=== PATIENT | male | born 1980 | race Caucasian/White ===

== ENCOUNTER 2017-04-27 11:12 | Emergency (ER) | payer MEDICAID ==
[~2017-04-27] VITALS: Ht 170.2 cm; Wt 68.8 kg
[~2017-04-27 11:12] MED LIST: CIPR-230 PO; HYDR-569 PO; METR500T4 PO
[2017-04-27] MEDS ORDERED: CIP750T PO (11:58)
[2017-04-27] MEDS ORDERED: METR500T4 PO (11:58)
[2017-04-27 12:10] VITALS: BP 123/85
== END 2017-04-27 12:11 | disposition home or self-care (01) ==
LOC: ER 11:12
DX: K61.1 Rectal abscess (principal); Z86.14 Personal history of Methicillin resistant Staphylococcus aureus infection; Z88.0 Allergy status to penicillin; Z88.1 Allergy status to other antibiotic agents; Z98.890 Other specified postprocedural states
CPT/HCPCS: 99283

== ENCOUNTER 2017-05-16 20:02 | Emergency (ER) | payer MEDICAID ==
[~2017-05-16] VITALS: Ht 170.2 cm; Wt 67.5 kg
[~2017-05-16 20:02] MED LIST changes: +CIP750T PO
[2017-05-16] MEDS ORDERED: IBUP-1984 PO (21:01)
[2017-05-16 21:23] VITALS: BP 123/81
== END 2017-05-16 21:29 | disposition home or self-care (01) ==
LOC: ER 20:02
DX: M79.641 Pain in right hand (principal); F17.200 Nicotine dependence, unspecified, uncomplicated; Z86.14 Personal history of Methicillin resistant Staphylococcus aureus infection; Z88.8 Allergy status to other drugs, medicaments and biological substances; Z79.899 Other long term (current) drug therapy
CPT/HCPCS: 73130; 99284

== ENCOUNTER 2017-07-26 21:33 | Emergency (ER) | payer MEDICAID ==
[~2017-07-26] VITALS: Ht 170.2 cm; Wt 57.8 kg
[~2017-07-26 21:33] MED LIST changes: -CIP750T PO
[2017-07-26] MEDS ORDERED: METR500T4 PO (23:11)
[2017-07-26] MEDS ORDERED: CIP750T PO (23:11)
[2017-07-26 23:56] VITALS: BP 125/74
== END 2017-07-27 00:01 | disposition home or self-care (01) ==
LOC: ER 21:34
DX: K61.0 Anal abscess (principal); Z86.14 Personal history of Methicillin resistant Staphylococcus aureus infection; Z98.890 Other specified postprocedural states; Z88.1 Allergy status to other antibiotic agents; Z88.8 Allergy status to other drugs, medicaments and biological substances; Z79.899 Other long term (current) drug therapy
CPT/HCPCS: 99283

== ENCOUNTER 2017-08-17 17:58 | Emergency (ER) | payer MEDICAID ==
[~2017-08-17] VITALS: Ht 170.2 cm; Wt 67.8 kg
[~2017-08-17 17:58] MED LIST changes: +CIP750T PO
[2017-08-17 18:27] VITALS: BP 120/80
[2017-08-17] MEDS ORDERED: CIPR-230 PO (20:27)
[2017-08-17] MEDS ORDERED: METR500T4 PO (20:27)
== END 2017-08-17 20:38 | disposition home or self-care (01) ==
LOC: ER 17:59
DX: K61.0 Anal abscess (principal); F17.200 Nicotine dependence, unspecified, uncomplicated; Z88.1 Allergy status to other antibiotic agents; Z79.899 Other long term (current) drug therapy
CPT/HCPCS: 99283

== ENCOUNTER 2017-12-16 15:28 | Emergency (ER) | payer MEDICAID ==
[~2017-12-16] VITALS: Ht 170.2 cm; Wt 52.0 kg
[~2017-12-16 15:28] MED LIST changes: -CIP750T PO; +HYDR-4383 PO; -HYDR-569 PO
[2017-12-16 15:36] VITALS: BP 126/92
[2017-12-16] MEDS ORDERED: CIPR-230 PO (16:16)
== END 2017-12-16 16:40 | disposition home or self-care (01) ==
LOC: ER 15:28
DX: K61.1 Rectal abscess (principal); Z86.14 Personal history of Methicillin resistant Staphylococcus aureus infection; Z88.1 Allergy status to other antibiotic agents; Z79.2 Long term (current) use of antibiotics; Z79.899 Other long term (current) drug therapy
CPT/HCPCS: 99283

== ENCOUNTER 2017-12-27 14:03 | Emergency (ER) | payer MEDICAID ==
[~2017-12-27] VITALS: Ht 170.2 cm; Wt 52.0 kg
[2017-12-27 14:08] VITALS: BP 110/80
[2017-12-27] MEDS ORDERED: CIPR-230 PO (14:38)
[2017-12-27] MEDS ORDERED: METR500T4 PO (14:38)
== END 2017-12-27 14:48 | disposition home or self-care (01) ==
LOC: ER 14:04
DX: K62.89 Other specified diseases of anus and rectum (principal); Z88.1 Allergy status to other antibiotic agents; Z88.8 Allergy status to other drugs, medicaments and biological substances
CPT/HCPCS: 99283

== ENCOUNTER 2018-01-30 16:27 | Emergency (ER) | payer MEDICAID ==
[~2018-01-30] VITALS: Ht 170.2 cm; Wt 63.6 kg
[2018-01-30 16:58] VITALS: BP 121/77
[2018-01-30] MEDS ORDERED: CIPR-259 PO (17:59)
[2018-01-30] MEDS ORDERED: METR500T4 PO (17:59)
== END 2018-01-30 18:04 | disposition home or self-care (01) ==
LOC: ER 16:27
DX: K62.89 Other specified diseases of anus and rectum (principal); Z86.14 Personal history of Methicillin resistant Staphylococcus aureus infection; Z98.890 Other specified postprocedural states; Z88.1 Allergy status to other antibiotic agents; Z79.2 Long term (current) use of antibiotics; Z79.899 Other long term (current) drug therapy
CPT/HCPCS: 99283

== ENCOUNTER 2018-04-08 18:32 | Emergency (ER) | payer MEDICAID ==
[~2018-04-08] VITALS: Ht 170.2 cm; Wt 56.8 kg
[~2018-04-08 18:32] MED LIST changes: +METR-159 PO; -METR500T4 PO
[2018-04-08 18:42] VITALS: BP 113/68
[2018-04-08] MEDS ORDERED: CIPR-230 PO (19:30)
[2018-04-08] MEDS ORDERED: ciprofloxacin 250mg tablet PO ONE (19:30)
[2018-04-08] MEDS ORDERED: metroNIDAZOLE 500mg tablet PO ONE (19:30)
[2018-04-08] MEDS ORDERED: METR-159 PO (19:30)
== END 2018-04-08 19:40 | disposition home or self-care (01) ==
LOC: ER 18:32
DX: K61.0 Anal abscess (principal); Z86.14 Personal history of Methicillin resistant Staphylococcus aureus infection; F17.210 Nicotine dependence, cigarettes, uncomplicated; Z88.1 Allergy status to other antibiotic agents; Z79.899 Other long term (current) drug therapy; Z98.890 Other specified postprocedural states
CPT/HCPCS: 99283; J3490

== ENCOUNTER 2018-04-23 15:40 | Emergency (ER) | payer MEDICAID ==
[~2018-04-23] VITALS: Ht 170.2 cm; Wt 70.0 kg
[2018-04-23 15:50] VITALS: BP 122/72
[2018-04-23] MEDS ORDERED: METR-159 PO (16:41)
[2018-04-23] MEDS ORDERED: CIPR-259 PO (16:41)
== END 2018-04-23 16:53 | disposition home or self-care (01) ==
LOC: ER 15:41
DX: K60.3 Anal fistula (principal); Z88.1 Allergy status to other antibiotic agents; Z88.8 Allergy status to other drugs, medicaments and biological substances
CPT/HCPCS: 99283

== ENCOUNTER 2018-11-18 18:45 | Emergency (ER) | payer MEDICAID ==
[~2018-11-18] VITALS: Ht 170.2 cm; Wt 63.6 kg
[2018-11-18] MEDS ORDERED: ibuprofen 200mg tablet PO ONE (20:30)
[2018-11-18] MEDS ORDERED: METR-159 PO (20:52)
[2018-11-18] MEDS ORDERED: CIPR-259 PO (20:52)
[2018-11-18] MEDS ORDERED: HYDR-3965 PO (20:53)
[2018-11-18 21:19] VITALS: BP 135/86
== END 2018-11-18 21:13 | disposition home or self-care (01) ==
LOC: ER 18:46
DX: K61.1 Rectal abscess (principal); F10.99 Alcohol use, unspecified with unspecified alcohol-induced disorder; Z86.14 Personal history of Methicillin resistant Staphylococcus aureus infection; Z98.890 Other specified postprocedural states; Z88.1 Allergy status to other antibiotic agents; Z88.8 Allergy status to other drugs, medicaments and biological substances; Z79.899 Other long term (current) drug therapy; Y90.9 Presence of alcohol in blood, level not specified
CPT/HCPCS: 99283

== ENCOUNTER 2019-01-13 08:54 | Inpatient (IN) | payer MEDICAID ==
[~2019-01-13] VITALS: Ht 170.2 cm; Wt 66.0 kg
[2019-01-13] MEDS ORDERED: ciprofloxacin lact 400MG/200ML 200 ML IV ONE (09:15)
[2019-01-13] MEDS ORDERED: morphine 4 MG/ML inj SYRINge IV ONE ×3 (09:15→14:25)
[2019-01-13] MEDS ORDERED: ondansetron/PF 4mg/2ml inj IV ONE (09:15)
[2019-01-13] MEDS ORDERED: metroNIDAZOLE-Flagyl 750mg/NS 150 ML IV ONE (09:15)
[2019-01-13] MEDS ORDERED: normal saline 1000ML IV soln IV ONE (09:15)
[2019-01-13] MEDS ORDERED: iohexol 300mg/ml 100ml inj. ONE (09:19)
[2019-01-13 09:40] LABS: CLARITY,URINE CLEAR (Clear); COLOR,URINE YELLOW (Yellow); GLUCOSE, URINE NEGATIVE (Neg); KETONES,URINE TRACE mg/dl (Neg); LEUKOCYTE ESTERASE ,URINE NEGATIVE (Neg); NITRITES, URINE NEGATIVE (Neg); OCCULT BLOOD,URINE NEGATIVE (Neg); PH,URINE 5.5 (4.8-8.0); PROTEIN,URINE NEGATIVE (Neg); UROBILINOGEN,URINE 0.2 E.U/dL (0.2-1.0)
[2019-01-13 09:42] LABS: BASOPHILS # (AUTO) 0.1 X10'3 (0-0.2); BASOPHILS % (AUTO) 0.3 % (0-1); EOSINOPHILS # (AUTO) 0.1 X10'3 (0-0.9); EOSINOPHILS % (AUTO) 0.9 % (0-6); HEMOGLOBIN 13.9 g/dl (14.0-17.9); LYMPHOCYTES % (AUTO) 6.7 % (21-51); MEAN CORPUSCULAR HEMOGLOBIN 31.8 PG (27.0-31.0); MEAN CORPUSCULAR HGB CONC 33.8 g/dL (33.0-36.5); MEAN CORPUSCULAR VOLUME 94.1 FL (78-98); MEAN PLATELET VOLUME 7.1 FL (7.4-10.4); MONOCYTES % (AUTO) 6.6 % (2-12); NEUTROPHILS # (AUTO) 13.1 X10'3 (1.8-7.7); NEUTROPHILS % (AUTO) 85.5 % (42-75); PLATELET COUNT 199 X10'3 (140-440); RED BLOOD COUNT 4.36 X10'6 (4.70-6.10); RED CELL DISTRIBUTION WIDTH 14.1 % (11.5-14.5); WHITE BLOOD COUNT 15.4 X10'3 (4.5-11.0)
[2019-01-13 09:43] LABS: UA COLLECTION TYPE URINAL
[2019-01-13 09:55] LABS: ALANINE AMINOTRANSFERASE 16 U/L (12-78); ALBUMIN 3.2 G/DL (3.4-5.0); ALBUMIN/GLOBULIN RATIO 0.8 (1.1-1.5); ALKALINE PHOSPHATASE 87 IU/L (46-116); ANION GAP 7 (8-16); ASPARTATE AMINO TRANSFERASE 10 U/L (10-37); BILIRUBIN,TOTAL 0.4 MG/DL (0.1-1.0); BLOOD UREA NITROGEN 12 MG/DL (7-18); BUN/CREATININE RATIO 13.8 (5.4-32.0); CALCIUM 9.3 MG/DL (8.5-10.1); CHLORIDE 108 MMOL/L (99-107); CREATININE 0.87 MG/DL (0.60-1.10); GLUCOSE 90 MG/DL (70-104); MAGNESIUM 1.8 MG/DL (1.5-2.4); SODIUM 138 MMOL/L (135-145); TOTAL CARBON DIOXIDE 23.1 MMOL/L (24-32); TOTAL PROTEIN 7.2 G/DL (6.4-8.2); eGFR > 90 ML/MIN
[2019-01-13] MEDS ORDERED: vancomycin/NS 1 GM ADD-VANTAGE 250 ML X 1 DOSE IV ONE (12:00)
[2019-01-13] MEDS ORDERED: clindamycin 600mg/D5W 50ml 50 ML IV ONE (13:30)
[2019-01-13] MEDS ORDERED: ketorolac trometh. 30mg/ml inj. IV ONE (14:25)
[2019-01-13] MEDS ORDERED: fentaNYL/PF 50MCG/1 ML 2ML syringe ONE ×2 (14:51→15:09)
[2019-01-13] MEDS ORDERED: midazolam 2 mg/2 ml injection ONE ×2 (14:58→15:09)
[2019-01-13 15:03] VITALS: BP 131/77
[2019-01-13] MEDS ORDERED: DOCU-267 PO (15:03)
[2019-01-13 15:07] VITALS: BP 116/77
[2019-01-13 15:12] VITALS: BP 114/72
[2019-01-13] MEDS ORDERED: HYDROcodone/acetaminophen 5mg/325mg tablet PO PRN (15:55)
[2019-01-13] MEDS ORDERED: mag hydrox/Alum hydrox/simeth 30ml oral suspension PO PRN (15:55)
[2019-01-13] MEDS ORDERED: ondansetron/PF 4mg/2ml inj IV PRN (15:55)
[2019-01-13] MEDS: K and/or MAG REPLACEMENT MC SCH (15:55)
[2019-01-13] MEDS ORDERED: potassium CL 10mEq/100ml bag 100 ML IV PRN ×2 (15:55)
[2019-01-13] MEDS ORDERED: magnesium hydroxide 30ml (MOM) UD suspension PO PRN (15:55)
[2019-01-13] MEDS ORDERED: magnesium Cl slow-release 64mg tablet PO PRN (15:55)
[2019-01-13] MEDS ORDERED: acetaminophen 325mg tablet PO PRN ×2 (15:55)
[2019-01-13] MEDS ORDERED: diphenhydrAMINE 25mg capsule PO PRN (15:55)
[2019-01-13] MEDS ORDERED: morphine 2 MG/ML inj. syringe IV PRN (15:55)
[2019-01-13] MEDS ORDERED: magnesium 2GM in 50ml NS 50 ML IV PRN (15:55)
[2019-01-13] MEDS ORDERED: diphenhydrAMINE 50 mg/ml inj IV PRN (15:55)
[2019-01-13] MEDS ORDERED: magnesium 4gm in 100ml NS 100 ML IV PRN (15:55)
[2019-01-13] MEDS ORDERED: potassium Cl 20 mEq SR tablet PO PRN ×2 (15:55)
[2019-01-13 16:24] LABS: HEMOGLOBIN A1C 5.2 % (4.5-6.2)
[2019-01-13] MEDS: normal saline 1000ml 1,000 ML IV SCH (17:12)
[2019-01-13] MEDS: metroNIDAZOLE-Flagyl 500mg/NS 100 ML IV SCH ×2 (17:16→23:37)
--- NOTE | 2019-01-13 19:00 | NUR ---
Patient in room ED 1. I have received report from SRINATH Em,ER and had the opportunity to ask questions and assume patient care.
[2019-01-13 20:00] VITALS: BP 122/76
[2019-01-13] MEDS: ciprofloxacin lact 400MG/200ML 200 ML IV SCH (21:11)
[2019-01-13] MEDS: morphine 2 MG/ML inj. syringe IV PRN (21:12)
[2019-01-13] MEDS: Melatonin 3mg tablet PO PRN (22:42)
[2019-01-13] MEDS: HYDROcodone/acetaminophen 10/325mg tab PO PRN (23:37)
[2019-01-13 23:54] VITALS: BP 106/60
[2019-01-14] VITALS (16 sets, daily range): BP systolic 101–125; BP diastolic 61–75
[2019-01-14 01:24] LABS: URINE AMPHETAMINE SCREEN NEGATIVE (Neg); URINE BARBITUATE SCREEN NEGATIVE (Neg); URINE BENZODIAZEPINES SCREEN NEGATIVE (Neg); URINE CANNABINOID SCREEN POSITIVE (Neg); URINE COCAINE SCREEN NEGATIVE (Neg); URINE METHADONE SCREEN NEGATIVE (Neg); URINE OPIATE SCREEN POSITIVE (Neg); URINE PHENCYCLIDINE SCREEN NEGATIVE (Neg)
[2019-01-14] MEDS: normal saline 1000ml 1,000 ML IV SCH ×3 (01:54→21:54)
[2019-01-14] MEDS: morphine 2 MG/ML inj. syringe IV PRN ×4 (02:13→21:43)
[2019-01-14] MEDS: HYDROcodone/acetaminophen 10/325mg tab PO PRN ×4 (04:28→18:09)
[2019-01-14 06:19] LABS: BASOPHILS % (AUTO) 0.2 % (0-1); EOSINOPHILS # (AUTO) 0.2 X10'3 (0-0.9); EOSINOPHILS % (AUTO) 1.2 % (0-6); HEMATOCRIT 36.3 % (42.0-52.0); HEMOGLOBIN 12.1 g/dl (14.0-17.9); LYMPHOCYTES # (AUTO) 1.1 X10'3 (1.1-4.8); LYMPHOCYTES % (AUTO) 8.1 % (21-51); MEAN CORPUSCULAR HEMOGLOBIN 31.7 PG (27.0-31.0); MEAN CORPUSCULAR HGB CONC 33.3 g/dL (33.0-36.5); MEAN CORPUSCULAR VOLUME 95.4 FL (78-98); MEAN PLATELET VOLUME 7.7 FL (7.4-10.4); MONOCYTES # (AUTO) 1.3 X10'3 (0-0.9); MONOCYTES % (AUTO) 10.2 % (2-12); NEUTROPHILS # (AUTO) 10.6 X10'3 (1.8-7.7); NEUTROPHILS % (AUTO) 80.3 % (42-75); PLATELET COUNT 161 X10'3 (140-440); RED CELL DISTRIBUTION WIDTH 13.9 % (11.5-14.5); WHITE BLOOD COUNT 13.2 X10'3 (4.5-11.0)
[2019-01-14 06:28] LABS: ALANINE AMINOTRANSFERASE 15 U/L (12-78); ALBUMIN 2.6 G/DL (3.4-5.0); ALBUMIN/GLOBULIN RATIO 0.7 (1.1-1.5); ALKALINE PHOSPHATASE 86 IU/L (46-116); ANION GAP 9 (8-16); ASPARTATE AMINO TRANSFERASE 11 U/L (10-37); BILIRUBIN,TOTAL 0.4 MG/DL (0.1-1.0); BLOOD UREA NITROGEN 6 MG/DL (7-18); BUN/CREATININE RATIO 7.4 (5.4-32.0); CALCIUM 8.4 MG/DL (8.5-10.1); CHLORIDE 106 MMOL/L (99-107); CHOL/HDL RATIO 2.7 (0.00-4.99); CHOLESTEROL 84 MG/DL (0-200); CREATININE 0.81 MG/DL (0.60-1.10); GLUCOSE 103 MG/DL (70-104); HDL CHOLESTEROL 31 MG/DL (35-60); LDL CHOLESTEROL 40 MG/DL (50-100); MAGNESIUM 1.5 MG/DL (1.5-2.4); PHOSPHORUS 2.3 MG/DL (2.3-4.5); POTASSIUM 3.6 MMOL/L (3.5-5.1); SODIUM 137 MMOL/L (135-145); TOTAL CARBON DIOXIDE 21.9 MMOL/L (24-32); TOTAL PROTEIN 6.1 G/DL (6.4-8.2); TRIGLYCERIDES 72 MG/DL (20-135); eGFR > 90 ML/MIN
--- NOTE | 2019-01-14 06:40 | NUR ---
Problems reprioritized. Patient report given, questions answered & plan of care reviewed with SRINATH Hadley.
--- NOTE | 2019-01-14 07:00 | NUR ---
Patient in room [facility]. I have received report from forrest YO and had the opportunity to ask questions and assume patient care.
[2019-01-14] MEDS: docusate sod 100mg capsule PO SCH ×2 (07:09→20:10)
[2019-01-14] MEDS: metroNIDAZOLE-Flagyl 500mg/NS 100 ML IV SCH ×2 (07:09→15:39)
[2019-01-14] MEDS: K and/or MAG REPLACEMENT MC SCH (08:00)
[2019-01-14] MEDS: ciprofloxacin lact 400MG/200ML 200 ML IV SCH ×2 (08:32→20:11)
[2019-01-14] MEDS ORDERED: iohexol 350MG/ML 100ml bottle IV ONE (11:49)
[2019-01-14] MEDS ORDERED: VANCOMYCIN LEVEL IV ONE (12:30)
[2019-01-14] MEDS ORDERED: ringers solution, lacted 1,000 ML IV SCH (16:14)
[2019-01-14] MEDS ORDERED: labetalol 20mg/4ml (5mg/ml) syringe IV PRN (16:15)
[2019-01-14] MEDS ORDERED: hydrALAZINE 20mg/ml inj. IV PRN (16:15)
[2019-01-14] MEDS ORDERED: fentaNYL/PF 50MCG/1 ML 2ML syringe IV PRN ×2 (16:15)
[2019-01-14] MEDS ORDERED: morphine 4 MG/ML inj SYRINge IV PRN ×2 (16:15)
[2019-01-14] MEDS ORDERED: ondansetron/PF 4mg/2ml inj IV PRN (16:15)
[2019-01-14] MEDS ORDERED: sevoflurane 250ml liquid IH ONE (17:04)
[2019-01-14] MEDS ORDERED: fentaNYL/PF 50MCG/1 ML 2ML syringe ONE ×3 (17:06→17:26)
[2019-01-14] MEDS ORDERED: midazolam 2 mg/2 ml injection ONE (17:07)
[2019-01-14] MEDS ORDERED: LIDOcaine 2% (20mg/ml) 5ml vial ONE (17:07)
[2019-01-14] MEDS ORDERED: dexamethasone sod phosphate 4mg/ml inj. ONE (17:07)
[2019-01-14] MEDS ORDERED: ondansetron/PF 4mg/2ml inj ONE (17:07)
[2019-01-14] MEDS ORDERED: propofol inj 20 ML IV ONE (17:07)
[2019-01-14] MEDS ORDERED: acetaminophen 1,000mg/100ml IV 100 ML IV ONE (17:19)
--- NOTE | 2019-01-14 17:24 | NUR ---
patient seen by DR Cesar, is for surgery this afternoon. All pre-op check list completed. patient went to OR 1630hrs.
--- NOTE | 2019-01-14 17:45 | NUR ---
ADMITTED TO PACU FROM OR ACCOMPANIED BY ANESTHESIA. INTIAL PHYSICAL ASSESSMENT DONE AND RECORDED. REPORT RECEIVED FROM ANESTHESIA.
--- NOTE | 2019-01-14 18:30 | NUR ---
Patient in room [facility] 352. I have received report from forrest alcocer and had the opportunity to ask questions and assume patient care.
--- NOTE | 2019-01-14 18:30 | NUR ---
PACU DISCHARGE CRITERIA MET, REPORT GIVEN TO FLOOR. MEDICATED PAIN ORDERED WITH GOOD RESULTS. TRANSFERRED TO ROOM IN STABLE GOOD CONDITION.
--- NOTE | 2019-01-14 18:44 | NUR ---
patient went for I&D of perirectal abscess with DR Cesar. Arrived back on unit 183, report given to Grace RN
--- NOTE | 2019-01-14 19:00 | NUR ---
patient arrived from OR and had an Iand D done by Dr Fleming. Pas was evacuated and patient is back and resting He denies having pain and shows no sign of distress. Will continue to monitor patient and give medications as ordered.
--- NOTE | 2019-01-14 19:32 | NUR ---
Patient in room [facility] 352. I have received report from Leonie YO and had the opportunity to ask questions and assume patient care. patient was having coughing episodes and is now resting with family by her bedside.
[2019-01-14] MEDS: Melatonin 3mg tablet PO PRN (21:41)
[2019-01-15] VITALS: BP 99/69
[2019-01-15] MEDS: metroNIDAZOLE-Flagyl 500mg/NS 100 ML IV SCH ×4 (00:09→23:37)
[2019-01-15] MEDS: HYDROcodone/acetaminophen 10/325mg tab PO PRN ×4 (00:09→18:27)
[2019-01-15] MEDS: normal saline 1000ml 1,000 ML IV SCH ×2 (01:41→17:19)
[2019-01-15 05:48] LABS: BASOPHILS % (AUTO) 0.1 % (0-1); EOSINOPHILS % (AUTO) 0 % (0-6); HEMATOCRIT 37.2 % (42.0-52.0); HEMOGLOBIN 12.6 g/dl (14.0-17.9); LYMPHOCYTES # (AUTO) 0.4 X10'3 (1.1-4.8); MEAN CORPUSCULAR HEMOGLOBIN 31.8 PG (27.0-31.0); MEAN CORPUSCULAR HGB CONC 33.7 g/dL (33.0-36.5); MEAN CORPUSCULAR VOLUME 94.4 FL (78-98); MEAN PLATELET VOLUME 7.5 FL (7.4-10.4); MONOCYTES # (AUTO) 0.3 X10'3 (0-0.9); NEUTROPHILS # (AUTO) 14.2 X10'3 (1.8-7.7); NEUTROPHILS % (AUTO) 94.9 % (42-75); PLATELET COUNT 183 X10'3 (140-440); RED BLOOD COUNT 3.94 X10'6 (4.70-6.10); RED CELL DISTRIBUTION WIDTH 14.1 % (11.5-14.5)
[2019-01-15 06:10] LABS: ALBUMIN 2.7 G/DL (3.4-5.0); ANION GAP 9 (8-16); BILIRUBIN,TOTAL 0.4 MG/DL (0.1-1.0); BLOOD UREA NITROGEN 8 MG/DL (7-18); BUN/CREATININE RATIO 10.5 (5.4-32.0); CALCIUM 8.9 MG/DL (8.5-10.1); CHLORIDE 105 MMOL/L (99-107); CREATININE 0.76 MG/DL (0.60-1.10); GLUCOSE 142 MG/DL (70-104); MAGNESIUM 1.8 MG/DL (1.5-2.4); PHOSPHORUS 2.7 MG/DL (2.3-4.5); POTASSIUM 3.8 MMOL/L (3.5-5.1); SODIUM 136 MMOL/L (135-145); TOTAL PROTEIN 6.7 G/DL (6.4-8.2); eGFR > 90 ML/MIN
[2019-01-15 06:11] LABS: ALANINE AMINOTRANSFERASE 11 U/L (12-78); ALBUMIN/GLOBULIN RATIO 0.7 (1.1-1.5); ALKALINE PHOSPHATASE 85 IU/L (46-116); ASPARTATE AMINO TRANSFERASE 11 U/L (10-37)
--- NOTE | 2019-01-15 06:17 | NUR ---
Patient in room [facility] 352. I have received report from PARDEEP YO and had the opportunity to ask questions and assume patient care.
--- NOTE | 2019-01-15 06:22 | NUR ---
Problems reprioritized. Patient report given, questions answered & plan of care reviewed with Leonie YO. Patient is sleeping
[2019-01-15 06:57] LABS: HIV ANTIBODY 1&2 RAPID NON-REACTIVE (Neg)
[2019-01-15 07:00] VITALS: BP 123/74
[2019-01-15] MEDS: docusate sod 100mg capsule PO SCH ×2 (07:26→19:36)
[2019-01-15] MEDS: K and/or MAG REPLACEMENT MC SCH (08:00)
[2019-01-15] MEDS: ciprofloxacin lact 400MG/200ML 200 ML IV SCH ×2 (08:34→19:37)
[2019-01-15] MEDS: morphine 2 MG/ML inj. syringe IV PRN ×3 (11:10→21:17)
[2019-01-15 11:34] VITALS: BP 104/63
[2019-01-15] MEDS ORDERED: VANCOMYCIN LEVEL IV ONE (12:30)
--- NOTE | 2019-01-15 15:13 | NUR ---
patient medicated for painx2 wound to rectum checked, packing in place. up and about in room. Awaiting to be seen by Dr Cesar, to receibe wound care orders. Appears comfortable, had shower.
--- NOTE | 2019-01-15 17:58 | NUR ---
Packing DC per arjun Renae bath applied. All cares given. report given to Inga YO
[2019-01-15 18:00] VITALS: BP 116/75
--- NOTE | 2019-01-15 19:16 | NUR ---
Patient in room [facility]. I have received report from SRNIATH Hadley and had the opportunity to ask questions and assume patient care. Addendum: 01/15/19 at 1917 by Inga Nichols RN Amended: Links added.
[2019-01-15] MEDS: Melatonin 3mg tablet PO PRN (21:17)
[2019-01-15] MEDS: VANCOmycin 1250MG/NS 250ml Bag 250 ML IV SCH (21:18)
[2019-01-15 23:42] VITALS: BP 113/67
[2019-01-16] MEDS: morphine 2 MG/ML inj. syringe IV PRN ×2 (02:59→08:29)
[2019-01-16] MEDS: normal saline 1000ml 1,000 ML IV SCH ×2 (03:54→13:54)
[2019-01-16 05:18] LABS: BASOPHILS % (AUTO) 0.4 % (0-1); EOSINOPHILS % (AUTO) 0.3 % (0-6); HEMATOCRIT 35.7 % (42.0-52.0); HEMOGLOBIN 12.1 g/dl (14.0-17.9); LYMPHOCYTES # (AUTO) 1.3 X10'3 (1.1-4.8); LYMPHOCYTES % (AUTO) 11.7 % (21-51); MEAN CORPUSCULAR HEMOGLOBIN 31.9 PG (27.0-31.0); MEAN CORPUSCULAR HGB CONC 33.8 g/dL (33.0-36.5); MEAN CORPUSCULAR VOLUME 94.3 FL (78-98); MEAN PLATELET VOLUME 7.5 FL (7.4-10.4); MONOCYTES # (AUTO) 0.7 X10'3 (0-0.9); MONOCYTES % (AUTO) 6.9 % (2-12); NEUTROPHILS # (AUTO) 8.8 X10'3 (1.8-7.7); NEUTROPHILS % (AUTO) 80.7 % (42-75); PLATELET COUNT 184 X10'3 (140-440); RED BLOOD COUNT 3.79 X10'6 (4.70-6.10); WHITE BLOOD COUNT 10.9 X10'3 (4.5-11.0)
[2019-01-16 05:30] LABS: GLUCOSE 108 MG/DL (70-104); SODIUM 142 MMOL/L (135-145)
[2019-01-16 05:31] LABS: ALANINE AMINOTRANSFERASE 13 U/L (12-78); ALBUMIN 2.5 G/DL (3.4-5.0); ALBUMIN/GLOBULIN RATIO 0.7 (1.1-1.5); ALKALINE PHOSPHATASE 71 IU/L (46-116); ANION GAP 9 (8-16); ASPARTATE AMINO TRANSFERASE 11 U/L (10-37); BILIRUBIN,TOTAL 0.3 MG/DL (0.1-1.0); BLOOD UREA NITROGEN 9 MG/DL (7-18); BUN/CREATININE RATIO 12.3 (5.4-32.0); CALCIUM 8.8 MG/DL (8.5-10.1); CHLORIDE 109 MMOL/L (99-107); CREATININE 0.73 MG/DL (0.60-1.10); MAGNESIUM 1.7 MG/DL (1.5-2.4); PHOSPHORUS 2.9 MG/DL (2.3-4.5); POTASSIUM 3.8 MMOL/L (3.5-5.1); TOTAL CARBON DIOXIDE 23.9 MMOL/L (24-32); TOTAL PROTEIN 5.9 G/DL (6.4-8.2); eGFR > 90 ML/MIN
[2019-01-16] MEDS: HYDROcodone/acetaminophen 10/325mg tab PO PRN ×2 (05:54→10:44)
[2019-01-16] MEDS: VANCOmycin 1250MG/NS 250ml Bag 250 ML IV SCH ×2 (05:56→14:00)
--- NOTE | 2019-01-16 06:05 | NUR ---
Problems reprioritized. Patient report given, questions answered & plan of care reviewed with SRINATH Salcido. Addendum: 01/16/19 at 0605 by Inga Nichols RN Amended: Links added.
--- NOTE | 2019-01-16 06:44 | NUR ---
Patient in room [facility]. I have received report from SRINATH Xiong and had the opportunity to ask questions and assume patient care.
[2019-01-16 07:00] VITALS: BP 125/56
[2019-01-16] MEDS: K and/or MAG REPLACEMENT MC SCH (08:00)
[2019-01-16] MEDS: ciprofloxacin lact 400MG/200ML 200 ML IV SCH (08:29)
[2019-01-16] MEDS: docusate sod 100mg capsule PO SCH (08:29)
[2019-01-16] MEDS: metroNIDAZOLE-Flagyl 500mg/NS 100 ML IV SCH (10:45)
[2019-01-16 11:00] VITALS: BP 102/65
[2019-01-16] MEDS ORDERED: LINE600T12 PO (13:04)
--- NOTE | 2019-01-16 15:26 | NUR ---
PATIENT STABLE AND APPROPRIATE FOR DISCHARGE, IV TAKEN OUT, EDUCATION GIVEN, ALL BELONGINGS SENT WITH PATIENT, PATIENT WALKED WITH MOM TO LOBBY TO AN AWAITING CAR TO GO HOME
[2019-01-16] MEDS ORDERED: VANCOMYCIN LEVEL IV ONE (21:30)
[2019-01-17 09:24] LABS: HBSAG SCREEN Negative (Negative); HEPATITIS C ANTIBODY <0.1 s/co ratio (0.0-0.9)
== END 2019-01-16 14:27 | disposition home or self-care (01) | DRG 383 ==
LOC: ER 08:54 → ED HOLD 16:09 → SUR 3N 19:34
PROVIDERS: ADMIT Family Medicine; ATTEND Family Medicine
PROC: 0W9M3ZZ Drainage of Male Perineum, Percutaneous Approach (ICD-10-PCS; principal; 2019-01-13)
PROC: BW2G1ZZ Computerized Tomography (CT Scan) of Pelvic Region using Low Osmolar Contrast (ICD-10-PCS; 2019-01-13)
PROC: 0W9M0ZZ Drainage of Male Perineum, Open Approach (ICD-10-PCS; 2019-01-14)
DX: L02.215 Cutaneous abscess of perineum (principal); K61.1 Rectal abscess; F12.10 Cannabis abuse, uncomplicated; F17.200 Nicotine dependence, unspecified, uncomplicated; Z88.1 Allergy status to other antibiotic agents; Z71.6 Tobacco abuse counseling; Z71.51 Drug abuse counseling and surveillance of drug abuser
CPT/HCPCS: 10030; 36415; 72193; 80053; 80061; 80202; 80305; 81003; 83036; 83605; 83735; 84100; 84145; 85025; 85610; 86703; 86706; 86803; 87040; 87070; 87075; 87077; 87081; 87186; 87340; 96365; 96367; 96375; 96376; 99285; A4618; A6253; A6266; A6449; A7000; G0378; J0131; J0744; J1100; J1885; J2001; J2250; J2270; J2405; J2704; J3010; J3370; J3490; J7030; J7120; Q9967

== ENCOUNTER 2019-02-02 18:23 | Emergency (ER) | payer MEDICAID ==
[~2019-02-02] VITALS: Ht 170.2 cm; Wt 64.0 kg
[~2019-02-02 18:23] MED LIST changes: -CIPR-230 PO; +DOCU-267 PO; -HYDR-4383 PO; +LINE600T12 PO; -METR-159 PO
--- NOTE | 2019-02-02 19:04 | NUR ---
SPOKE WITH PATEE, VERBAL GIVEN FOR SEPSIS PROTOCOL SECONDARY TO PTS HISTORY.
[2019-02-02 19:35] LABS: BASOPHILS # (AUTO) 0.1 X10'3 (0-0.2); BASOPHILS % (AUTO) 0.8 % (0-1); EOSINOPHILS # (AUTO) 0.1 X10'3 (0-0.9); EOSINOPHILS % (AUTO) 1.6 % (0-6); HEMATOCRIT 40.6 % (42.0-52.0); LYMPHOCYTES % (AUTO) 25.3 % (21-51); MEAN CORPUSCULAR HEMOGLOBIN 31.8 PG (27.0-31.0); MEAN CORPUSCULAR HGB CONC 34.5 g/dL (33.0-36.5); MEAN PLATELET VOLUME 6.4 FL (7.4-10.4); MONOCYTES # (AUTO) 0.5 X10'3 (0-0.9); MONOCYTES % (AUTO) 7.1 % (2-12); NEUTROPHILS % (AUTO) 65.2 % (42-75); PLATELET COUNT 162 X10'3 (140-440); RED BLOOD COUNT 4.41 X10'6 (4.70-6.10); RED CELL DISTRIBUTION WIDTH 14.2 % (11.5-14.5); WHITE BLOOD COUNT 7.7 X10'3 (4.5-11.0)
[2019-02-02 19:48] LABS: PARTIAL THROMBOPLASTIN TIME 28 SECONDS (22-32)
[2019-02-02 19:49] LABS: ALANINE AMINOTRANSFERASE 25 U/L (12-78); ALBUMIN 3.9 G/DL (3.4-5.0); ALBUMIN/GLOBULIN RATIO 1.1 (1.1-1.5); ALKALINE PHOSPHATASE 88 IU/L (46-116); ANION GAP 10 (8-16); ASPARTATE AMINO TRANSFERASE 20 U/L (10-37); BILIRUBIN,TOTAL 0.6 MG/DL (0.1-1.0); BLOOD UREA NITROGEN 13 MG/DL (7-18); BUN/CREATININE RATIO 16.9 (5.4-32.0); CALCIUM 9.2 MG/DL (8.5-10.1); CHLORIDE 102 MMOL/L (99-107); CREATININE 0.77 MG/DL (0.60-1.10); GLUCOSE 89 MG/DL (70-104); MAGNESIUM 1.7 MG/DL (1.5-2.4); POTASSIUM 3.9 MMOL/L (3.5-5.1); SODIUM 137 MMOL/L (135-145); TOTAL CARBON DIOXIDE 25.3 MMOL/L (24-32); TOTAL PROTEIN 7.6 G/DL (6.4-8.2); eGFR > 90 ML/MIN
[2019-02-02 21:17] LABS: CLARITY,URINE CLEAR (Clear); COLOR,URINE YELLOW (Yellow); GLUCOSE, URINE NEGATIVE (Neg); KETONES,URINE 15 mg/dl (Neg); LEUKOCYTE ESTERASE ,URINE NEGATIVE (Neg); NITRITES, URINE NEGATIVE (Neg); OCCULT BLOOD,URINE NEGATIVE (Neg); PH,URINE 6.5 (4.8-8.0); PROTEIN,URINE NEGATIVE (Neg); UROBILINOGEN,URINE 0.2 E.U/dL (0.2-1.0)
[2019-02-02 21:19] LABS: UA COLLECTION TYPE URINAL
[2019-02-02] MEDS ORDERED: SULF1TAB49 PO (21:38)
[2019-02-02] MEDS ORDERED: ondansetron 4mg rapidly disintigrating tab PO ONE (21:40)
[2019-02-02] MEDS ORDERED: sulfamethoxazole/trimethoprim DS (800/160mg) tablet PO ONE (21:40)
--- NOTE | 2019-02-02 21:45 | NUR ---
dr zambrano talked with dr. vincent, and then to pt. pt to be started on antibiotics, first dose here, and to follow up soon with dr. vincent. pt is agreeable to this plan.
[2019-02-02 21:50] VITALS: BP 125/86
== END 2019-02-02 21:51 | disposition home or self-care (01) ==
LOC: ER 18:24
DX: L02.31 Cutaneous abscess of buttock (principal); F10.99 Alcohol use, unspecified with unspecified alcohol-induced disorder; R79.1 Abnormal coagulation profile; Z86.14 Personal history of Methicillin resistant Staphylococcus aureus infection; Z98.890 Other specified postprocedural states; Z88.1 Allergy status to other antibiotic agents; Z88.8 Allergy status to other drugs, medicaments and biological substances; Z79.899 Other long term (current) drug therapy; Y90.9 Presence of alcohol in blood, level not specified
CPT/HCPCS: 36415; 71045; 80053; 81003; 83605; 83735; 84145; 85025; 85610; 85730; 87040; 99284

== ENCOUNTER 2019-03-03 19:03 | Inpatient (IN) | payer MEDICAID ==
[~2019-03-03] VITALS: Ht 170.2 cm; Wt 64.5 kg
[~2019-03-03 19:03] MED LIST changes: -LINE600T12 PO
[2019-03-03] MEDS ORDERED: iohexol 300mg/ml 100ml inj. ONE (20:05)
[2019-03-03 20:16] LABS: BASOPHILS # (AUTO) 0.1 X10'3 (0-0.2); BASOPHILS % (AUTO) 0.5 % (0-1); EOSINOPHILS % (AUTO) 0.3 % (0-6); HEMATOCRIT 41.4 % (42.0-52.0); HEMOGLOBIN 14.3 g/dl (14.0-17.9); LYMPHOCYTES # (AUTO) 1.4 X10'3 (1.1-4.8); LYMPHOCYTES % (AUTO) 11.3 % (21-51); MEAN CORPUSCULAR HEMOGLOBIN 31.6 PG (27.0-31.0); MEAN CORPUSCULAR HGB CONC 34.5 g/dL (33.0-36.5); MEAN CORPUSCULAR VOLUME 91.6 FL (78-98); MEAN PLATELET VOLUME 7.1 FL (7.4-10.4); MONOCYTES # (AUTO) 1.1 X10'3 (0-0.9); MONOCYTES % (AUTO) 9.3 % (2-12); NEUTROPHILS # (AUTO) 9.4 X10'3 (1.8-7.7); NEUTROPHILS % (AUTO) 78.6 % (42-75); PLATELET COUNT 191 X10'3 (140-440); RED BLOOD COUNT 4.52 X10'6 (4.70-6.10)
[2019-03-03 20:30] LABS: ALANINE AMINOTRANSFERASE 21 U/L (12-78); ALBUMIN 3.8 G/DL (3.4-5.0); ALBUMIN/GLOBULIN RATIO 1.2 (1.1-1.5); ALKALINE PHOSPHATASE 104 IU/L (46-116); ANION GAP 7 (8-16); ASPARTATE AMINO TRANSFERASE 17 U/L (10-37); BILIRUBIN,TOTAL 0.7 MG/DL (0.1-1.0); BLOOD UREA NITROGEN 17 MG/DL (7-18); BUN/CREATININE RATIO 17.7 (5.4-32.0); CALCIUM 9.5 MG/DL (8.5-10.1); CHLORIDE 105 MMOL/L (99-107); CREATININE 0.96 MG/DL (0.60-1.10); GLUCOSE 89 MG/DL (70-104); POTASSIUM 3.7 MMOL/L (3.5-5.1); SODIUM 140 MMOL/L (135-145); TOTAL CARBON DIOXIDE 28.2 MMOL/L (24-32); TOTAL PROTEIN 7.1 G/DL (6.4-8.2); eGFR 87 ML/MIN
[2019-03-03] MEDS ORDERED: morphine 4 MG/ML inj SYRINge IV ONE ×2 (21:05→22:05)
[2019-03-03] MEDS ORDERED: ondansetron/PF 4mg/2ml inj IV ONE (21:05)
[2019-03-03] MEDS ORDERED: vancomycin/NS 1 GM ADD-VANTAGE 250 ML X 1 DOSE IV ONE (21:45)
[2019-03-03] MEDS ORDERED: magnesium 4gm in 100ml NS 100 ML IV PRN (21:55)
[2019-03-03] MEDS ORDERED: potassium CL 10mEq/100ml bag 100 ML IV PRN ×2 (21:55)
[2019-03-03] MEDS ORDERED: magnesium Cl slow-release 64mg tablet PO PRN (21:55)
[2019-03-03] MEDS ORDERED: acetaminophen 325mg tablet PO PRN (21:55)
[2019-03-03] MEDS ORDERED: morphine 2 MG/ML inj. syringe IV PRN (21:55)
[2019-03-03] MEDS ORDERED: potassium Cl 20 mEq SR tablet PO PRN (21:55)
[2019-03-03] MEDS ORDERED: ondansetron/PF 4mg/2ml inj IV PRN (21:55)
[2019-03-03] MEDS ORDERED: magnesium 2GM in 50ml NS 50 ML IV PRN (21:55)
[2019-03-03] MEDS ORDERED: mag hydrox/Alum hydrox/simeth 30ml oral suspension PO PRN (21:55)
[2019-03-03] MEDS ORDERED: magnesium hydroxide 30ml (MOM) UD suspension PO PRN (21:55)
[2019-03-03] MEDS: normal saline 1000ml 1,000 ML IV SCH (22:20)
[2019-03-03 22:25] LABS: LIPASE 172 U/L (73-393)
--- NOTE | 2019-03-03 22:28 | NUR ---
Patient in room . I have received report from SRINATH Pelletier and had the opportunity to ask questions and assume patient care.
[2019-03-03 22:42] VITALS: BP 124/82
[2019-03-03] MEDS: HYDROcodone/acetaminophen 5mg/325mg tablet PO PRN (23:16)
[2019-03-04] VITALS (16 sets, daily range): BP systolic 108–137; BP diastolic 62–93
[2019-03-04] MEDS: morphine 2 MG/ML inj. syringe IV PRN ×4 (02:27→19:08)
[2019-03-04] MEDS: HYDROcodone/acetaminophen 5mg/325mg tablet PO PRN ×2 (03:38→21:46)
[2019-03-04] MEDS: normal saline 1000ml 1,000 ML IV SCH (05:11)
[2019-03-04 06:10] LABS: ALBUMIN 3.1 G/DL (3.4-5.0); ANION GAP 8 (8-16); BLOOD UREA NITROGEN 9 MG/DL (7-18); BUN/CREATININE RATIO 10.7 (5.4-32.0); CALCIUM 8.4 MG/DL (8.5-10.1); CHLORIDE 105 MMOL/L (99-107); CREATININE 0.84 MG/DL (0.60-1.10); GLUCOSE 90 MG/DL (70-104); MAGNESIUM 1.5 MG/DL (1.5-2.4); POTASSIUM 3.7 MMOL/L (3.5-5.1); SODIUM 139 MMOL/L (135-145); TOTAL CARBON DIOXIDE 25.7 MMOL/L (24-32); eGFR > 90 ML/MIN
--- NOTE | 2019-03-04 06:10 | NUR ---
Patient in room [facility]. I have received report from SRINATH Mayfield and had the opportunity to ask questions and assume patient care.
[2019-03-04 06:15] LABS: BASOPHILS % (AUTO) 0.3 % (0-1); EOSINOPHILS # (AUTO) 0.1 X10'3 (0-0.9); EOSINOPHILS % (AUTO) 0.6 % (0-6); HEMATOCRIT 37.8 % (42.0-52.0); LYMPHOCYTES # (AUTO) 1.4 X10'3 (1.1-4.8); MEAN CORPUSCULAR HEMOGLOBIN 31.8 PG (27.0-31.0); MEAN CORPUSCULAR HGB CONC 34.5 g/dL (33.0-36.5); MEAN CORPUSCULAR VOLUME 92.3 FL (78-98); MEAN PLATELET VOLUME 7.2 FL (7.4-10.4); MONOCYTES % (AUTO) 9.5 % (2-12); NEUTROPHILS # (AUTO) 8.1 X10'3 (1.8-7.7); NEUTROPHILS % (AUTO) 76.6 % (42-75); PLATELET COUNT 159 X10'3 (140-440); RED BLOOD COUNT 4.09 X10'6 (4.70-6.10); RED CELL DISTRIBUTION WIDTH 14.3 % (11.5-14.5); WHITE BLOOD COUNT 10.6 X10'3 (4.5-11.0)
[2019-03-04] MEDS: vancomycin/NS 1 GM ADD-VANTAGE 250 ML IV SCH ×2 (06:41→13:10)
--- NOTE | 2019-03-04 06:50 | NUR ---
Problems reprioritized. Patient report given, questions answered & plan of care reviewed with Adair Ross.
--- NOTE | 2019-03-04 07:02 | NUR ---
Patient in room [facility]. I have received report from Chaparro YO and had the opportunity to ask questions and assume patient care.
[2019-03-04] MEDS: K and/or MAG REPLACEMENT MC SCH ×2 (07:28→19:06)
[2019-03-04] MEDS: enoxaparin 40mg/0.4ml syringe SQ SCH (07:29)
[2019-03-04] MEDS: ibuprofen tablet 400 MG TABLET PO SCH ×3 (07:30→17:27)
[2019-03-04] MEDS: famotidine 10mg tablet PO SCH ×2 (07:41→19:07)
[2019-03-04] MEDS: lactobacillus rhamnosus 10,000 MMU CELLS/CAPSULE PO SCH ×2 (07:41→19:07)
[2019-03-04] MEDS: docusate sod 100mg capsule PO SCH ×2 (07:41→19:07)
[2019-03-04] MEDS ORDERED: ringers solution, lacted 1,000 ML IV SCH (09:17)
[2019-03-04] MEDS ORDERED: morphine 4 MG/ML inj SYRINge IV PRN ×2 (09:20)
[2019-03-04] MEDS ORDERED: meperidine/PF 25mg/ml syringe IV PRN ×3 (09:20)
[2019-03-04] MEDS ORDERED: ondansetron/PF 4mg/2ml inj IV PRN (09:20)
[2019-03-04] MEDS ORDERED: fentaNYL/PF 50MCG/1 ML 2ML syringe ONE ×2 (09:20→09:49)
[2019-03-04] MEDS ORDERED: proCHLORperazine 10 MG/2 ml inj IV PRN (09:20)
[2019-03-04] MEDS ORDERED: midazolam 2 mg/2 ml injection ONE (09:21)
[2019-03-04] MEDS ORDERED: glycopyrrolate 0.2mg/ml inj ONE (09:24)
[2019-03-04] MEDS ORDERED: neostigmine methylsulfate 1 MG/ML 10ml vial ONE (09:24)
[2019-03-04] MEDS ORDERED: dexamethasone sod phosphate 4mg/ml inj. ONE (09:24)
[2019-03-04] MEDS ORDERED: rocuronium 10mg/ml inj IV ONE (09:24)
[2019-03-04] MEDS ORDERED: propofol inj 20 ML IV ONE (09:24)
[2019-03-04] MEDS ORDERED: LIDOcaine 2% (20mg/ml) 5ml vial ONE (09:24)
[2019-03-04] MEDS ORDERED: ondansetron/PF 4mg/2ml inj ONE (09:24)
[2019-03-04] MEDS ORDERED: sevoflurane 250ml liquid IH ONE (09:27)
[2019-03-04] MEDS ORDERED: BUPIVAcaine/PF 2.5 mg/ml (0.25%) 30ml vial ONE (09:46)
[2019-03-04] MEDS ORDERED: LIDOcaine 1% 30ml preserv. free vial ONE (09:46)
[2019-03-04] MEDS ORDERED: metroNIDAZOLE-Flagyl 500mg/NS 100 ML IV ONE (10:10)
--- NOTE | 2019-03-04 10:20 | NUR ---
Received from OR via , accompanied by Anesthesiologist DR BATRES and report given by Anesthesiolgist. AWAKENS TO VOICE. VITALS STABLR. DRESSING DI. NIC PAIN.
--- NOTE | 2019-03-04 11:00 | NUR ---
Report called to receiving nurse. Transferred via BED Belongings . Special Issues communicated to receiving nurse. AWAKE AND ORIENTED. VITALS STABLE. SM AMNT OF RED DRAINAGE NOTED TO DRESSING. DENIASE PAIN. TO SURGICAL RM 341 AT THIS TIME.
[2019-03-04] MEDS ORDERED: VANCOMYCIN 1gm/H2O 200ml PB 250 ML IV SCH (13:21)
[2019-03-04] MEDS: metroNIDAZOLE-Flagyl 500mg/NS 100 ML IV SCH (15:45)
--- NOTE | 2019-03-04 18:17 | NUR ---
Problems reprioritized. Patient report given to Rafa RN, questions answered & plan of care reviewed with [].
[2019-03-05] VITALS: BP 118/71
[2019-03-05] MEDS: metroNIDAZOLE-Flagyl 500mg/NS 100 ML IV SCH ×2 (00:33→07:58)
[2019-03-05] MEDS: morphine 2 MG/ML inj. syringe IV PRN ×4 (00:34→20:28)
[2019-03-05] MEDS: HYDROcodone/acetaminophen 5mg/325mg tablet PO PRN (05:05)
[2019-03-05] MEDS ORDERED: VANCOMYCIN LEVEL IV ONE (05:30)
[2019-03-05 06:09] LABS: ANION GAP 10 (8-16); BLOOD UREA NITROGEN 12 MG/DL (7-18); BUN/CREATININE RATIO 13.6 (5.4-32.0); CHLORIDE 106 MMOL/L (99-107); CREATININE 0.88 MG/DL (0.60-1.10); GLUCOSE 117 MG/DL (70-104); MAGNESIUM 1.9 MG/DL (1.5-2.4); POTASSIUM 3.8 MMOL/L (3.5-5.1); SODIUM 140 MMOL/L (135-145); TOTAL CARBON DIOXIDE 24.4 MMOL/L (24-32); VANCOMYCIN,TROUGH 3.8 UG/ML (6.0-14.0); eGFR > 90 ML/MIN
[2019-03-05 06:11] LABS: BASOPHILS % (AUTO) 0.1 % (0-1); EOSINOPHILS % (AUTO) 0 % (0-6); HEMATOCRIT 37.3 % (42.0-52.0); HEMOGLOBIN 12.7 g/dl (14.0-17.9); LYMPHOCYTES # (AUTO) 0.8 X10'3 (1.1-4.8); LYMPHOCYTES % (AUTO) 6.3 % (21-51); MEAN CORPUSCULAR HEMOGLOBIN 31.7 PG (27.0-31.0); MEAN CORPUSCULAR HGB CONC 34.1 g/dL (33.0-36.5); MEAN CORPUSCULAR VOLUME 92.9 FL (78-98); MEAN PLATELET VOLUME 7.4 FL (7.4-10.4); MONOCYTES # (AUTO) 0.8 X10'3 (0-0.9); MONOCYTES % (AUTO) 6.8 % (2-12); NEUTROPHILS # (AUTO) 10.6 X10'3 (1.8-7.7); NEUTROPHILS % (AUTO) 86.8 % (42-75); PLATELET COUNT 169 X10'3 (140-440); RED BLOOD COUNT 4.02 X10'6 (4.70-6.10); RED CELL DISTRIBUTION WIDTH 13.9 % (11.5-14.5); WHITE BLOOD COUNT 12.2 X10'3 (4.5-11.0)
--- NOTE | 2019-03-05 06:15 | NUR ---
Patient in room [facility]. I have received report from SRINATH Craig and had the opportunity to ask questions and assume patient care.
--- NOTE | 2019-03-05 06:25 | NUR ---
Problems reprioritized. Patient report given, questions answered & plan of care reviewed with SRINATH Stockton.
[2019-03-05 06:30] VITALS: BP 115/75
[2019-03-05] MEDS: K and/or MAG REPLACEMENT MC SCH ×2 (06:53→20:00)
[2019-03-05] MEDS: lactobacillus rhamnosus 10,000 MMU CELLS/CAPSULE PO SCH ×2 (07:58→20:27)
[2019-03-05] MEDS: docusate sod 100mg capsule PO SCH ×2 (07:58→20:27)
[2019-03-05] MEDS: famotidine 10mg tablet PO SCH ×2 (07:58→20:27)
[2019-03-05] MEDS: enoxaparin 40mg/0.4ml syringe SQ SCH (07:58)
[2019-03-05] MEDS: ibuprofen tablet 400 MG TABLET PO SCH ×3 (07:58→17:34)
[2019-03-05] MEDS: levoFLOXACIN-Levaquin 500mg/D5 100 ML IV SCH (09:32)
[2019-03-05 11:00] VITALS: BP 103/66
[2019-03-05] MEDS: HYDROcodone/acetaminophen 10/325mg tab PO PRN ×3 (11:11→23:43)
[2019-03-05] MEDS: nicotine 7mg patch - 24hr TD SCH (15:10)
[2019-03-05] MEDS: metroNIDAZOLE 500mg tablet PO SCH ×2 (16:45→23:43)
--- NOTE | 2019-03-05 18:30 | NUR ---
Patient in room [facility]. I have received report from Vandana YO and had the opportunity to ask questions and assume patient care.
[2019-03-05 19:00] VITALS: BP 116/67
[2019-03-06] VITALS: BP 109/73
[2019-03-06] MEDS: morphine 2 MG/ML inj. syringe IV PRN (02:01)
[2019-03-06] MEDS: HYDROcodone/acetaminophen 10/325mg tab PO PRN ×2 (05:33→09:23)
[2019-03-06 06:22] LABS: BASOPHILS % (AUTO) 0.3 % (0-1); EOSINOPHILS # (AUTO) 0.1 X10'3 (0-0.9); HEMATOCRIT 35.2 % (42.0-52.0); HEMOGLOBIN 12.2 g/dl (14.0-17.9); LYMPHOCYTES # (AUTO) 1.7 X10'3 (1.1-4.8); LYMPHOCYTES % (AUTO) 24.4 % (21-51); MEAN CORPUSCULAR HEMOGLOBIN 32.2 PG (27.0-31.0); MEAN CORPUSCULAR HGB CONC 34.6 g/dL (33.0-36.5); MEAN PLATELET VOLUME 7.3 FL (7.4-10.4); MONOCYTES # (AUTO) 0.6 X10'3 (0-0.9); MONOCYTES % (AUTO) 7.9 % (2-12); NEUTROPHILS # (AUTO) 4.7 X10'3 (1.8-7.7); NEUTROPHILS % (AUTO) 66.4 % (42-75); PLATELET COUNT 173 X10'3 (140-440); RED BLOOD COUNT 3.79 X10'6 (4.70-6.10)
[2019-03-06 06:30] VITALS: BP 118/75
[2019-03-06 06:30] LABS: ALBUMIN 2.9 G/DL (3.4-5.0); ANION GAP 9 (8-16); BLOOD UREA NITROGEN 9 MG/DL (7-18); BUN/CREATININE RATIO 9.9 (5.4-32.0); CALCIUM 8.7 MG/DL (8.5-10.1); CHLORIDE 109 MMOL/L (99-107); CREATININE 0.91 MG/DL (0.60-1.10); GLUCOSE 97 MG/DL (70-104); MAGNESIUM 1.6 MG/DL (1.5-2.4); POTASSIUM 3.3 MMOL/L (3.5-5.1); SODIUM 142 MMOL/L (135-145); TOTAL CARBON DIOXIDE 24.3 MMOL/L (24-32); eGFR > 90 ML/MIN
--- NOTE | 2019-03-06 06:40 | NUR ---
Patient in room [facility]. I have received report from SRINATH Stockton and had the opportunity to ask questions and assume patient care.
--- NOTE | 2019-03-06 06:42 | NUR ---
Problems reprioritized. Patient report given, questions answered & plan of care reviewed with Vandana RN.
[2019-03-06] MEDS: K and/or MAG REPLACEMENT MC SCH (06:49)
[2019-03-06] MEDS: metroNIDAZOLE 500mg tablet PO SCH (08:12)
[2019-03-06] MEDS: levoFLOXACIN-Levaquin 500mg/D5 100 ML IV SCH (08:12)
[2019-03-06] MEDS: docusate sod 100mg capsule PO SCH (08:12)
[2019-03-06] MEDS: famotidine 10mg tablet PO SCH (08:12)
[2019-03-06] MEDS: lactobacillus rhamnosus 10,000 MMU CELLS/CAPSULE PO SCH (08:12)
[2019-03-06] MEDS: ibuprofen tablet 400 MG TABLET PO SCH ×2 (08:12→12:42)
[2019-03-06] MEDS: enoxaparin 40mg/0.4ml syringe SQ SCH (08:13)
[2019-03-06] MEDS: nicotine 7mg patch - 24hr TD SCH (08:13)
[2019-03-06] MEDS: potassium Cl 20 mEq SR tablet PO PRN ×2 (08:20→12:42)
[2019-03-06] MEDS ORDERED: HYDROcodone/acetaminophen 10/325mg tab PO PRN (10:20)
[2019-03-06 11:00] VITALS: BP 129/90
[2019-03-06] MEDS ORDERED: HYDR-4383 PO (11:17)
[2019-03-06] MEDS ORDERED: METR-159 PO (11:17)
[2019-03-06] MEDS ORDERED: LEVO500T2 PO (11:17)
--- NOTE | 2019-03-06 12:50 | NUR ---
Surgeon's order in chart for pt's WOC. Per pt's primary RN, pt is independent and performs both Sitz baths and packing of wound. Will continue to follow.
--- NOTE | 2019-03-06 14:15 | NUR ---
DC inst provided to pt. IV DC'd, tip intact. All belongings sent w/pt. Pt ambulated to front lobby.
== END 2019-03-06 14:17 | disposition home or self-care (01) | DRG 951 ==
LOC: ER 19:05 → SUR 3N 22:41
PROVIDERS: ADMIT Hospitalist; ATTEND Internal Medicine
PROC: BW211ZZ Computerized Tomography (CT Scan) of Abdomen and Pelvis using Low Osmolar Contrast (ICD-10-PCS; 2019-03-03)
PROC: 3E0T3BZ Introduction of Anesthetic Agent into Peripheral Nerves and Plexi, Percutaneous Approach (ICD-10-PCS; 2019-03-04)
PROC: 0J9B0ZZ Drainage of Perineum Subcutaneous Tissue and Fascia, Open Approach (ICD-10-PCS; principal; 2019-03-04 09:27)
DX: K61.39 Other ischiorectal abscess (principal); F17.200 Nicotine dependence, unspecified, uncomplicated; K62.89 Other specified diseases of anus and rectum; Z88.1 Allergy status to other antibiotic agents; Z88.8 Allergy status to other drugs, medicaments and biological substances; Z79.899 Other long term (current) drug therapy
CPT/HCPCS: 36415; 72193; 80048; 80053; 80202; 82948; 83690; 83735; 85025; 85610; 87070; 87075; 87077; 87081; 87186; A4215; A4618; A6253; A6407; A7000; G0378; J1100; J1650; J1956; J2001; J2250; J2270; J2405; J2704; J2710; J3010; J3370; J3490; J7030; J7120; Q9967

== ENCOUNTER 2019-03-26 18:48 | Emergency (ER) | payer MEDICAID ==
[~2019-03-26] VITALS: Ht 170.2 cm; Wt 65.9 kg
[~2019-03-26 18:48] MED LIST changes: +HYDR-4383 PO; +LEVO500T2 PO; +METR-159 PO
[2019-03-26] MEDS ORDERED: METR-159 PO (20:27)
[2019-03-26] MEDS ORDERED: CLIN150C2 PO (20:27)
[2019-03-26] MEDS ORDERED: L. R1CAP4 PO (20:27)
[2019-03-26 20:38] VITALS: BP 132/64
== END 2019-03-26 20:41 | disposition home or self-care (01) ==
LOC: ER 18:49
DX: K61.1 Rectal abscess (principal); F10.99 Alcohol use, unspecified with unspecified alcohol-induced disorder; Z86.14 Personal history of Methicillin resistant Staphylococcus aureus infection; Z98.890 Other specified postprocedural states; Z88.1 Allergy status to other antibiotic agents; Z88.8 Allergy status to other drugs, medicaments and biological substances; Z79.899 Other long term (current) drug therapy; Y90.9 Presence of alcohol in blood, level not specified
CPT/HCPCS: 99283

== ENCOUNTER 2019-04-07 11:47 | Emergency (ER) | payer MEDICAID ==
[~2019-04-07] VITALS: Ht 170.2 cm; Wt 66.7 kg
[~2019-04-07 11:47] MED LIST changes: +L. R1CAP4 PO; -LEVO500T2 PO; -METR-159 PO
[2019-04-07 11:49] VITALS: BP 113/79
[2019-04-07] MEDS ORDERED: METR500T PO (12:21)
== END 2019-04-07 13:16 | disposition home or self-care (01) ==
LOC: ER 11:47
DX: K60.3 Anal fistula (principal); Z86.14 Personal history of Methicillin resistant Staphylococcus aureus infection; Z98.890 Other specified postprocedural states; Z88.1 Allergy status to other antibiotic agents; Z88.8 Allergy status to other drugs, medicaments and biological substances; Z79.899 Other long term (current) drug therapy
CPT/HCPCS: 99283

== ENCOUNTER 2019-07-25 20:50 | Emergency (ER) | payer MEDICAID ==
[~2019-07-25] VITALS: Ht 170.2 cm; Wt 66.8 kg
[2019-07-25] MEDS ORDERED: CEPH500C5 PO (21:26)
[2019-07-25] MEDS ORDERED: SULF1TAB49 PO (21:26)
[2019-07-25] MEDS ORDERED: TRAM50TA2 PO (21:29)
[2019-07-25 22:11] VITALS: BP 126/89
== END 2019-07-25 21:44 | disposition home or self-care (01) ==
LOC: ER 20:50
DX: L03.317 Cellulitis of buttock (principal); Z86.14 Personal history of Methicillin resistant Staphylococcus aureus infection; Z98.890 Other specified postprocedural states; Z72.89 Other problems related to lifestyle; Z88.1 Allergy status to other antibiotic agents; Z79.2 Long term (current) use of antibiotics; Z79.899 Other long term (current) drug therapy
CPT/HCPCS: 99283

== ENCOUNTER 2019-10-03 17:20 | Emergency (ER) | payer MEDICAID ==
[~2019-10-03] VITALS: Ht 170.2 cm; Wt 58.0 kg
[2019-10-03 17:34] VITALS: BP 122/85
[2019-10-03] MEDS ORDERED: HYDROcodone/acetaminophen 5mg/325mg tablet PO ONE (19:15)
[2019-10-03] MEDS ORDERED: HYDR-3965 PO (19:21)
[2019-10-03] MEDS ORDERED: CIPR-259 PO (19:21)
[2019-10-03] MEDS ORDERED: METR-159 PO (19:21)
== END 2019-10-03 19:35 | disposition home or self-care (01) ==
LOC: ER 17:21
DX: K60.4 Rectal fistula (principal); Z86.14 Personal history of Methicillin resistant Staphylococcus aureus infection; Z98.890 Other specified postprocedural states; Z72.89 Other problems related to lifestyle; Z88.1 Allergy status to other antibiotic agents; Z88.8 Allergy status to other drugs, medicaments and biological substances; Z79.899 Other long term (current) drug therapy
CPT/HCPCS: 99283

== ENCOUNTER 2019-12-16 21:32 | Emergency (ER) | payer MEDICARE, MEDICAID ==
[~2019-12-16] VITALS: Ht 170.2 cm; Wt 63.6 kg
[2019-12-16] MEDS ORDERED: METR-159 PO (22:20)
[2019-12-16] MEDS ORDERED: hydrocort. acetate/pramoxine 10gm bottle RC STA (22:20)
[2019-12-16] MEDS ORDERED: SULF1TAB49 PO (22:20)
[2019-12-16 22:43] VITALS: BP 130/73
== END 2019-12-16 22:44 | disposition home or self-care (01) ==
LOC: ER 21:32
DX: K61.1 Rectal abscess (principal); Z86.14 Personal history of Methicillin resistant Staphylococcus aureus infection; Z98.890 Other specified postprocedural states; Z72.89 Other problems related to lifestyle; Z88.1 Allergy status to other antibiotic agents; Z88.8 Allergy status to other drugs, medicaments and biological substances; Z79.2 Long term (current) use of antibiotics; Z79.899 Other long term (current) drug therapy
CPT/HCPCS: 99283

== ENCOUNTER 2023-01-04 16:51 | Emergency (ER) | payer MEDICARE, MEDICAID ==
[~2023-01-04] VITALS: Ht 170.2 cm; Wt 62.7 kg
[~2023-01-04 16:51] MED LIST changes: +DOCU-262 PO; -DOCU-267 PO
[2023-01-04 17:07] VITALS: BP 143/95; PULSE 74; RESP 18; TEMP 97.8; O2SAT 98
[2023-01-04] MEDS ORDERED: CLIN-214 PO (17:19)
== END 2023-01-04 17:27 | disposition home or self-care (01) ==
LOC: ER 16:51
DX: K02.9 Dental caries, unspecified (principal); Z86.14 Personal history of Methicillin resistant Staphylococcus aureus infection; Z79.899 Other long term (current) drug therapy; Z88.1 Allergy status to other antibiotic agents
CPT/HCPCS: 99283

== ENCOUNTER 2023-01-27 09:19 | Emergency (ER) | payer MEDICARE, MEDICAID ==
[~2023-01-27] VITALS: Ht 170.2 cm; Wt 64.6 kg
[~2023-01-27 09:19] MED LIST changes: +CLIN-214 PO
[2023-01-27 09:23] VITALS: BP 125/91; PULSE 106; RESP 18; TEMP 99.3; O2SAT 99
[2023-01-27] MEDS ORDERED: METR-159 PO (10:02)
[2023-01-27] MEDS ORDERED: CIPR-259 PO (10:02)
== END 2023-01-27 10:15 | disposition home or self-care (01) ==
LOC: ER 09:19
DX: L02.31 Cutaneous abscess of buttock (principal); Z91.041 Radiographic dye allergy status; Z88.1 Allergy status to other antibiotic agents; Z79.2 Long term (current) use of antibiotics; Z79.899 Other long term (current) drug therapy
CPT/HCPCS: 99283

== ENCOUNTER 2023-12-13 10:43 | Emergency (ER) | payer MEDICARE, MEDICAID ==
[~2023-12-13] VITALS: Ht 170.2 cm; Wt 65.0 kg
[2023-12-13] MEDS ORDERED: LIDOcaine 1% W/epiNEPHrine 1:100,000 20ml vial IJ ONE (11:40)
[2023-12-13] MEDS ORDERED: DOXY-460 PO (11:53)
[2023-12-13] MEDS ORDERED: ACET-2 PO (11:53)
[2023-12-13] MEDS: LIDOcaine 1% W/epiNEPHrine 1:200,000 10ml vial IJ ONE (11:53)
[2023-12-13 12:12] VITALS: BP 148/78; PULSE 78; RESP 18; TEMP 98.1; O2SAT 97
== END 2023-12-13 12:13 | disposition home or self-care (01) ==
LOC: ER 10:44
DX: L02.31 Cutaneous abscess of buttock (principal); F17.210 Nicotine dependence, cigarettes, uncomplicated; Z91.041 Radiographic dye allergy status; Z88.1 Allergy status to other antibiotic agents; Z79.2 Long term (current) use of antibiotics; Z79.899 Other long term (current) drug therapy; Z87.19 Personal history of other diseases of the digestive system
CPT/HCPCS: 99283; A6266; A6449

== ENCOUNTER 2025-01-08 10:02 | Emergency (ER) | payer MEDICARE, MEDICAID ==
[~2025-01-08] VITALS: Ht 170.2 cm; Wt 58.8 kg
[2025-01-08 10:08] VITALS: BP 127/92; PULSE 89; RESP 18; TEMP 98.8; O2SAT 99
[2025-01-08] MEDS ORDERED: METR-159 PO (10:29)
[2025-01-08] MEDS ORDERED: CIPR-458 PO (10:29)
--- NOTE | 2025-01-08 10:31 | Physician Documentation ---
History of Present Illness ~ Chief Complaint: Abscess Stated Complaint: ABCESS Time Seen by MD: 10:28 Primary Medical Doctor: [facility] HPI Endorsees recurring abscesses to buttocks secondary to Crohns. Right buttock abscess 1 cm draining well with limited cellulitis. Tetanus Within 5 Years: Yes (SEP 2018) Medication Reconciliation Allergies: Coded Allergies: erythromycin base (Verified Allergy, Unknown, 01/08/25) amoxicillin trihydrate (Unverified Adverse Reaction, Unknown, 01/08/25) STOMACH PAIN potassium clavulanate (Unverified Adverse Reaction, Unknown, 01/08/25) STOMACH PAIN Scheduled Ciprofloxacin HCl (Ciprofloxacin HCl), 1 TAB PO BID Clindamycin HCl (Clindamycin HCl CAPSULE), 1 CAP PO QID Docusate Sodium (Dok), 1 CAP PO BID, (Reported) L. Rhamnosus GG/Inulin (Culturelle Probiotics Capsule), 1 CAP PO Q12H PRN Metronidazole* (Flagyl*), 1 TABLET PO BID Scheduled PRN Hydrocodone/Acetaminophen (Derby 5-325 Tablet), 1 TAB PO Q6H PRN for moderate pain 4-6 Past Medical History Past Medical History: *GI/HEPATOBILIARY*, Hemorrhoids, MRSA Abscess Past Surgical History: orthopedic surgeries, other Patient History: FH: arrhythmia MOTHER, Age: 60 Unknown family medical history FATHER, Age: 59 Alcohol Use: Occasionally Drug Use: none Lives with: Other Lives In: Home Occupation: employed, other Review of Systems All Other Systems at this time: Reviewed and Negative Gastrointestinal See HPI Physical Exam Vital Signs: RN Vital Signs have been reviewed: Yes, Temperature: 98.8, Source: Temporal, Heart Rate: 89, Respiratory Rate: 18, BP: 127/92, Pulse Oximetry: 99, Weight: 58.800 Oxygen Flow Rate: 0 General Appearance: alert, WD/WN, mild distress EENT: normal ENT inspection Neck: normal inspection Cardiovascular: regular rate, rhythm Respiratory: no respiratory distress Abscess/Mass : Site: Right buttock near cleft without rectal involvement Appearance: red, tender, pus drainage Length (cm): 1 Width (cm): 1 Cellulitis: localized Cellulitis Length (cm): 1 Cellulitis Width (cm): 1 Skin: normal color Progress Results/Orders Results/Orders Vital Signs 01/08/25 10:08 Temp 98.8 Pulse 89 Resp 18 B/P (MAP) 127/92 Pulse Ox 99 O2 Flow Rate 0 Medical Decision Making Additional information obtaine: N/A Findings Examination history consistent with localized perirectal open and draining abscess requiring outpatient antibiotic therapy without need for incision and drainage. Differential Dx:Considerations: Include: Abscess, Bacteremia, Cellulitis, Hidrademitis suppurativa, Impetigo Departure Disposition: HOME / SELF CARE / HOMELESS Impression: Primary Impression: Perianal abscess Condition: Stable Discharge Instructions: Abscess, Care After Additional Instructions: Please begin medications as directed and follow up with your Doctor.Return to Emergency if worse. I have provided you with a work note until Wednesday Departure Forms: Excuse form Work or School Excused From: Work Excuse beginning now through the following date: Jan 12, 2025 Referrals: NO PRIMARY CARE PROVIDER (PCP) Prescriptions Ciprofloxacin HCl (Ciprofloxacin HCl) 500 Mg Tab 1 TAB PO BID, #14 TAB Prov: YUE ALEX 01/08/25 Metronidazole* (Flagyl*) 500 Mg Tablet 1 TABLET PO BID, #14 TABLET Prov: YUE ALEX 01/08/25 Education Educated: Patient Educated regarding: diagnosis, treatment, prognosis Signature Scribe Signature: . Attestation: . YUE ALEX Jan 08, 2025 10:31
== END 2025-01-08 10:58 | disposition home or self-care (01) ==
LOC: ER 10:04
DX: K61.0 Anal abscess (principal); Z88.1 Allergy status to other antibiotic agents
CPT/HCPCS: 99283